=== PATIENT | female | born 1975 | race Two or more races ===

== ENCOUNTER 2024-07-22 11:44 | Emergency (ER) | payer OTHER ==
[~2024-07-22] VITALS: Ht 157.5 cm; Wt 52.2 kg
[2024-07-22] MEDS ORDERED: SYNTHROID88 MCG PO (13:37)
[2024-07-22] MEDS ORDERED: LACTOBACILLUS ACIDOPHILUS 1 CAP CAP PO ONE (14:30)
[2024-07-22] MEDS ORDERED: 0.9 % SODIUM CHLORIDE 1,000 ML IV ONE (14:30)
[2024-07-22] MEDS ORDERED: FAMOTIDINE/PF 20 MG/2 ML VIAL IV ONE (14:30)
[2024-07-22] MEDS ORDERED: METOCLOPRAMIDE HCL 5 MG/ML VIAL IV ONE (14:45)
[2024-07-22 15:11] LABS: HEMATOCRIT 40.6 % (36.0-45.00); HEMOGLOBIN 13.4 g/dL (12.0-15.00); MEAN CELL VOLUME 80.9 fL (80.00-100.00); MEAN CORPUSCULAR HEMOGLOBIN 26.7 pg (27.00-32.0); PLATELET COUNT 262 K/uL (150-450); RED BLOOD COUNT 5.02 M/uL (4.00-6.00); RED CELL DISTRIBUTION WIDTH 13.7 % (11.5-14.5)
[2024-07-22 15:35] LABS: ALBUMIN 4.2 gm/dL (3.4-5.0); BILIRUBIN TOTAL 0.68 mg/dL (0.3-1.2); CALCIUM 9.6 mg/dL (8.5-10.1); CREATININE SERUM 0.68 mg/dL (0.55-1.02); GFR 91.59; GLOBULINA 3.8 G/DL (2.4-3.5); POTASSIUM 3.9 mEq/L (3.5-5.1)
[2024-07-22 15:45] LABS: PH,URINE 5.5 (5.0-8.0); URINE APPEARANCE Clear; URINE BILIRRUBIN Negative (NEGATIVE); URINE BLOOD Negative; URINE COLOR Yellow; URINE GLUCOSE Negative (NEGATIVE); URINE LEUKOCYTE Negative; URINE NITRATE Negative; URINE PROTEIN Trace (NEGATIVE); URINE UROBILINOGEN 0.2 E.U./dl
[2024-07-22 15:48] LABS: URINE BACTERIA 380.6 uL (0.0-1933); URINE EPITHELIAL CELLS 28.4 uL (0.0-38.8); URINE RBC 5.5 uL (0.0-20.8); URINE WBC 10.7 uL (0.0-23.2)
[2024-07-22 16:04] LABS: URINE CAST 0.14 uL (0.0-1.40); URINE KETONE >=160 (NEGATIVE)
[2024-07-22] MEDS ORDERED: PEPCID AC20 MG PO (18:34)
[2024-07-22] MEDS ORDERED: ONDANSETRON HCL4 MG PO (18:34)
[2024-07-22] MEDS ORDERED: INTESTINEX680 M1 PO (18:34)
== END 2024-07-22 18:45 ==
LOC: ER 11:46
PROVIDERS: General Practice
DX: K52.9 Noninfective gastroenteritis and colitis, unspecified (principal); E03.9 Hypothyroidism, unspecified; Z88.2 Allergy status to sulfonamides